=== PATIENT | male | born 1960 | race Caucasian/White ===

== ENCOUNTER 2016-11-13 16:49 | Emergency (ER) | payer BC ==
[~2016-11-13] VITALS: Ht 180.3 cm; Wt 149.2 kg
[~2016-11-13 16:49] MED LIST: HYDR5CAP; INDO50CA82
[2016-11-13 18:12] LABS: Basophils # (auto) 0.1 uL; Basophils % (auto) 0.6 % (0.0-2.0); CONDITION Y; Eosinophils # (auto) 0.2 uL; Eosinophils % (auto) 2.4 % (0.0-7.0); Hematocrit 45.6 % (41.0-53.0); Hemoglobin 15.8 g/dL (13.5-17.5); Lymphocytes # (auto) 2.3 uL; Lymphocytes % (auto) 24.7 % (10.0-50.0); Mean Corpuscular Hemoglobin 30.8 pg (28.0-32.0); Mean Corpuscular Hgb Conc. 34.7 g/dL (32.0-36.0); Mean Corpuscular Volume 88.8 fL (80.0-100.0); Mean Platelet Volume 8.3 fL (7.4-10.4); Monocytes # (auto) 0.9 uL; Monocytes % (auto) 9.8 % (0.0-12.0); Neutrophils # (auto) 5.9 uL; Neutrophils % (auto) 62.5 % (37.0-80.0); Platelet Count (auto) 242 10^3/uL (140-450); Red Cell Distribution Width 14.9 % (11.6-16.0); White Blood Cell 9.4 10^3/uL (4.4-10.8)
[2016-11-13 18:28] LABS: Albumin 3.6 g/dL (3.4-5.0); Anion Gap 9 (5-15); BUN/Creatinine Ratio 18.6; Blood Urea Nitrogen 19 mg/dL (7-18); Calcium 8.1 mg/dL (8.5-10.1); Carbon Dioxide 26 mmol/L (21-32); Chloride 106 mmol/L (98-107); GFR African American 98 mL/min; GFR Non-African American 81 mL/min; Glucose 99 mg/dL (74-106); Sodium 141 mmol/L (136-145)
[2016-11-13 18:33] LABS: Alkaline Phosphatase 104 U/L (45-117); Bilirubin, Total 0.6 mg/dL (0.2-1.0); Total Protein 7.7 g/dL (6.4-8.2)
[2016-11-13 18:36] LABS: B-Type Natriuretic Peptide 5.93 pg/mL (0-100)
[2016-11-13 18:42] LABS: Aspartate Aminotransferase 30 U/L (15-37); Magnesium 2.4 mg/dL (1.6-2.6); Potassium 3.5 mmol/L (3.5-5.1); Temperature: 22.7 C (20.0-25.0)
[2016-11-13] MEDS ORDERED: ASPirin-EC 325mg tab PO ONE (19:00)
[2016-11-13] MEDS ORDERED: IOHEXOL 350 MG/ML 100ML IJ ONE (21:09)
[2016-11-13 23:58] VITALS: BP 121/84
== END 2016-11-13 23:59 | disposition home or self-care (01) ==
LOC: ER 17:02
DX: I20.9 Angina pectoris, unspecified (principal); I10 Essential (primary) hypertension; Z88.6 Allergy status to analgesic agent; Z88.8 Allergy status to other drugs, medicaments and biological substances
CPT/HCPCS: 36415; 71020; 71275; 80053; 83735; 83880; 84443; 84484; 85025; 85379; 93005; 99285; Q9967